=== PATIENT | male | born 1985 | race Caucasian/White ===

== ENCOUNTER 2017-11-14 17:42 | Emergency (ER) | payer SELFPAY ==
[~2017-11-14] VITALS: Ht 170.2 cm; Wt 78.4 kg
[2017-11-14 18:31] LABS: HEMATOCRIT 48.5 % (38.0-50.0); HEMOGLOBIN 17.1 G/DL (12.5-16.6); MCH 32.3 PG (29.0-34.0); MCHC 35.3 G/DL (30.0-36.0); MCV 91.7 FL (86-99); PLATELET COUNT 274 K/uL (156-360); RBC DIS.WIDTH-CV 12.6 % (11.8-14.6); RBC DIS.WIDTH-SD 42.3 % (39-53); RED BLOOD COUNT 5.29 M/uL (4.00-5.50); WHITE BLOOD COUNT 7.9 K/uL (4.1-10.2)
[2017-11-14 18:41] LABS: CHLORIDE 102 mEq/L (99-109); POTASSIUM 4.1 mEq/L (3.7-5.4); SODIUM 137 mEq/L (136-147)
[2017-11-14 18:43] LABS: GLUCOSE 145 mg/dL (70-99)
[2017-11-14 18:47] LABS: CREATININE 1.1 mg/dL (0.6-1.3); UREA NITROGEN (BUN) 15 mg/dL (9-23)
[2017-11-14 18:48] LABS: GFR ESTIMATE (CALCULATED) > 59 mL/min/ (58.99-99999)
[2017-11-14 18:55] LABS: TROP-I INTERPRETATION NEGATIVE; TROPONIN-I < 0.01 ng/mL (0.0-0.30)
[2017-11-14] MEDS ORDERED: ZITHROMAX250 MG PO ×2 (21:07→21:12)
[2017-11-14] MEDS ORDERED: PREDNISONE20 MG PO (21:11)
[2017-11-14] MEDS ORDERED: VENTOLIN HFA18 GM IH (21:11)
[2017-11-14 22:18] VITALS: BP 131/76
== END 2017-11-14 22:20 | disposition home or self-care (01) ==
LOC: EME 17:42
DX: J40 Bronchitis, not specified as acute or chronic (principal); F17.200 Nicotine dependence, unspecified, uncomplicated; Z71.6 Tobacco abuse counseling
CPT/HCPCS: 71046; 80048; 84484; 85027; 93005; 94640; 99281; 99283; J7512